=== PATIENT | male | born 1965 | race American Indian/Alaskan Native ===

== ENCOUNTER 2020-09-05 21:06 | Emergency (ER) | payer BC ==
[2020-09-05] MEDS ORDERED: Lidocaine 1% PF 2 ML SDV INJECT ONE (22:12)
[2020-09-05] MEDS ORDERED: Diphtheria,Pertussis(Acell),Tetanus Vaccine 0.5 ML Syringe IM ONE (22:20)
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
[2020-09-05 23:18] VITALS: BP 138/87; PULSE 78
== END 2020-09-05 23:18 | disposition home or self-care (01) ==
LOC: MW.ED 21:06
DX: S60.352A Superficial foreign body of left thumb, initial encounter (principal); E66.9 Obesity, unspecified; Z68.35 Body mass index [BMI] 35.0-35.9, adult; Z88.5 Allergy status to narcotic agent; Z91.030 Bee allergy status; Z23 Encounter for immunization; W45.8XXA Other foreign body or object entering through skin, initial encounter
CPT/HCPCS: 90471; 90715; 99283